=== PATIENT | female | born 1955 | race Caucasian/White ===

== ENCOUNTER 2020-11-16 19:39 | Inpatient (IN) | payer MEDICARE, OTHER ==
[~2020-11-16] VITALS: Ht 162.6 cm; Wt 99.8 kg
[~2020-11-16 19:39] MED LIST: ASPIRIN CHEW81 MG PO; ASPIRIN81 M1 PO; BENTYL20 MG PO; CARAFATE1 GM PO; CHLORDIAZEPOXI1 EACH PO; CYMBALTA60 MG PO; DEXILANT60 MG PO; FENTANYL1 EAC1 PO; FLEXERIL10 MG PO; GABAPENTIN300 MG PO; HEMOCYTE PLUS1 EACH PO; LEVAQUIN500 MG PO; LEXAPRO20 MG PO; LIBRAX CAPSULE1 EACH PO; LISINOPRIL-HCT1 EAC1 PO; LISINOPRIL-HCT1 EAC2 PO; LORAZEPAM0.5 MG PO; LYRICA75 MG PO; METOPROLOL SUC100 MG PO; NIACIN500 M1 PO; NORCO 10-325 T1 EACH; PERCOCET 10-321 EACH PO; REGLAN10 MG PO; SENNA-S TABLET1 EA PO; TRAZODONE HCL50 MG PO; XANAX PO
[2020-11-16] MEDS ORDERED: ONDANSETRON HCL INJ 2MG/ML 2ML 2 MG/ML VIAL IV STA (20:30)
[2020-11-16 20:32] LABS: BASOPHILS % 0.1 % (0.0-1.0); EOSINOPHILS % 0.1 % (0.0-6.0); HEMOGLOBIN 12.5 g/dL (12.0-16.0); LYMPHOCYTES # (AUTO) 1.2 (1.0-3.2); LYMPHOCYTES % 13.5 % (18.0-39.1); MEAN CORPUSCULAR HEMOGLOBIN 25.6 pg (28-32); MEAN CORPUSCULAR HGB CONC 32.9 g/dL (31-35); MEAN CORPUSCULAR VOLUME 77.9 fL (81-99); MONOCYTES # (AUTO) 0.2 (0.2-0.8); MONOCYTES % 2.5 % (4.4-11.3); NEUTROPHILS # (AUTO) 7.4 (2.1-6.9); NEUTROPHILS % 83.5 % (38.7-80.0); PLATELET COUNT 433 x10e3/uL (140-360); RED BLOOD COUNT 4.88 x10e6/uL (3.6-5.1); RED CELL DISTRIBUTION WIDTH 14.8 % (11.7-14.4)
[2020-11-16] MEDS ORDERED: ONDANSETRON HCL INJ 2MG/ML 2ML 2 MG/ML VIAL ONE (20:34)
[2020-11-16 20:48] LABS: ALANINE AMINOTRANSFERASE 8 IU/L (0-55); ALBUMIN 4.4 g/dL (3.5-5.0); ALBUMIN/GLOBULIN RATIO 1.2 (0.8-2.0); ALKALINE PHOSPHATASE 64 IU/L (40-150); BLOOD UREA NITROGEN 7 mg/dL (7-26); BUN/CREATININE RATIO 10 (6-25); CALCIUM 9.9 mg/dL (8.4-10.2); CARBON DIOXIDE 23 mmol/L (22-29); CHLORIDE 98 mmol/L (98-107); CREATINE KINASE 51 IU/L (29-168); CREATININE, SERUM 0.72 mg/dL (0.57-1.11); EST GLOMERULAR FILTRATION RATE > 60 ML/MIN (60-); GLUCOSE 154 mg/dL (74-118); SODIUM 137 mmol/L (136-145)
[2020-11-16 20:52] LABS: CLARITY,URINE SL CLOUDY (CLEAR); COLOR,URINE YELLOW (YELLOW); KETONES,URINE NEGATIVE (NEGATIVE); LEUKOCYTE ESTERASE ,URINE NEGATIVE (NEGATIVE); NITRITE,URINE NEGATIVE (NEGATIVE); PROTEIN,URINE DIPSTICK TRACE (NEGATIVE); URINE UROBILINOGEN 0.2 mg/dL (0.2 - 1)
[2020-11-16 21:04] LABS: BACTERIA,URINE MODERATE /HPF; EPITHELIAL CELLS,URINE FEW /LPF
[2020-11-16] MEDS ORDERED: SODIUM CHLORIDE 0.9% 50ML 50 ML ONE (21:08)
[2020-11-16] MEDS ORDERED: IOPAMIDOL 370 MG/ML 200 ML INFUS..BTL INJ ONE (21:08)
[2020-11-16] MEDS ORDERED: POTASSIUM CHLORIDE 20 MEQ TAB CR PO STA (21:54)
[2020-11-16] MEDS ORDERED: METOCLOPRAMIDE HCL 10 MG/2ML VIAL IV ONE (22:00)
[2020-11-16] MEDS ORDERED: DIPHENHYDRAMINE HCL INJ 50 MG/ML VIAL IV ONE (22:00)
[2020-11-16] MEDS ORDERED: ZOFRAN4 MG SL (22:46)
[2020-11-16] MEDS ORDERED: PANTOPRAZOLE SO40 MG PO (22:46)
[2020-11-16] MEDS ORDERED: PANTOPRAZOLE SOD 40 MG TABEC PO ONE (23:00)
[2020-11-16] MEDS ORDERED: ONDANSETRON HCL INJ 2MG/ML 2ML 2 MG/ML VIAL IV PRN (23:00)
[2020-11-16] MEDS: PANTOPRAZOLE INJ 40 MG in SODIUM CHLORIDE 0.9% 50ML 50 ML IV SCH (23:39)
[2020-11-17] VITALS (8 sets, daily range): BP systolic 157–194; BP diastolic 76–111
[2020-11-17] MEDS ORDERED: ONDANSETRON HCL INJ 2MG/ML 2ML 2 MG/ML VIAL IV STA (00:25)
[2020-11-17] MEDS ORDERED: DONNATAL/LIDOCAINE/MAALOX 30 ML SUSP PO STA (00:31)
[2020-11-17] MEDS ORDERED: LIDOCAINE VISC 2% SOLN 15 ML UDC PO ONE (00:45)
[2020-11-17] MEDS ORDERED: BELLADONNA ALK/PHENOBARBITAL 5 ML UDC PO ONE (00:45)
[2020-11-17] MEDS ORDERED: MAGNESIUM/ALUMINUM/SIMETHICONE 30 ML UDC PO ONE (00:45)
[2020-11-17] MEDS ORDERED: MELATONIN3 M1 PO (01:12)
[2020-11-17] MEDS ORDERED: BENADRYL25 M1 PO (01:12)
[2020-11-17] MEDS ORDERED: PAXIL40 MG PO (01:12)
[2020-11-17] MEDS: METOCLOPRAMIDE HCL 10 MG/2ML VIAL IV SCH ×4 (02:03→16:28)
[2020-11-17] MEDS: TRAMADOL HCL 50 MG TAB PO PRN ×2 (03:39→08:55)
[2020-11-17] MEDS: PANTOPRAZOLE INJ 40 MG in SODIUM CHLORIDE 0.9% 50ML 50 ML IV SCH ×4 (03:43→19:00)
[2020-11-17] MEDS ORDERED: PANTOPRAZOLE 40 MG 10ML VIAL ONE ×2 (03:48→10:35)
[2020-11-17] MEDS ORDERED: SODIUM CHLORIDE 0.9% 50ML 50 ML ONE (03:49)
[2020-11-17] MEDS: HYDROMORPHONE 1MG/1ML INJ IV PRN ×4 (06:17→22:15)
[2020-11-17] MEDS: LABETALOL HCL 5 MG/ML 20ML VIAL IV PRN ×2 (06:17→21:30)
[2020-11-17 06:31] LABS: BASOPHILS % 0.1 % (0.0-1.0); HEMATOCRIT 36.1 % (34.2-44.1); HEMOGLOBIN 11.8 g/dL (12.0-16.0); LYMPHOCYTES # (AUTO) 1.3 (1.0-3.2); LYMPHOCYTES % 14.6 % (18.0-39.1); MEAN CORPUSCULAR HEMOGLOBIN 25.5 pg (28-32); MEAN CORPUSCULAR HGB CONC 32.7 g/dL (31-35); MONOCYTES # (AUTO) 0.3 (0.2-0.8); MONOCYTES % 3.7 % (4.4-11.3); PLATELET COUNT 405 x10e3/uL (140-360); RED BLOOD COUNT 4.63 x10e6/uL (3.6-5.1); RED CELL DISTRIBUTION WIDTH 14.9 % (11.7-14.4)
[2020-11-17 07:11] LABS: ALANINE AMINOTRANSFERASE 7 IU/L (0-55); ALBUMIN 4.2 g/dL (3.5-5.0); ALBUMIN/GLOBULIN RATIO 1.1 (0.8-2.0); ALKALINE PHOSPHATASE 62 IU/L (40-150); BLOOD UREA NITROGEN 6 mg/dL (7-26); BUN/CREATININE RATIO 8 (6-25); CALCIUM 9.4 mg/dL (8.4-10.2); CARBON DIOXIDE 26 mmol/L (22-29); CHLORIDE 96 mmol/L (98-107); CREATININE, SERUM 0.73 mg/dL (0.57-1.11); EST GLOMERULAR FILTRATION RATE > 60 ML/MIN (60-); GLUCOSE 126 mg/dL (74-118); LIPASE 42 U/L (8-78); SODIUM 136 mmol/L (136-145)
[2020-11-17 07:54] LABS: FERRITIN 15.69 ng/mL (4.63-204.00)
[2020-11-17] MEDS ORDERED: HYDROMORPHONE 1MG/1ML INJ IV PRN (08:30)
[2020-11-17] MEDS ORDERED: POTASSIUM CHLORIDE 20MEQ/100ML 100 ML IV ONE ×2 (08:30→11:30)
[2020-11-17] MEDS ORDERED: SODIUM CHLORIDE 0.9% 250ML 250 ML ONE ×2 (08:52→11:31)
[2020-11-17] MEDS ORDERED: SODIUM CHLORIDE 0.9% 100 ML ONE (10:35)
[2020-11-17] MEDS ORDERED: FENTANYL CITRATE/PF 100MCG/2 ML INJ ONE (11:54)
[2020-11-17] MEDS ORDERED: MIDAZOLAM HCL 2 MG/2 ML VIAL ONE (11:54)
[2020-11-17] MEDS ORDERED: LIDOCAINE HCL 2% LOCAL INJ 5 ML SDV VIAL INJ ONE (13:51)
[2020-11-17] MEDS ORDERED: PROPOFOL IV EMULSION 10 MG/ML 20 ML VIAL ONE (13:51)
[2020-11-17] MEDS: ONDANSETRON HCL INJ 2MG/ML 2ML 2 MG/ML VIAL IV PRN (20:49)
[2020-11-18] VITALS (11 sets, daily range): BP systolic 147–196; BP diastolic 86–133
[2020-11-18] MEDS: METOCLOPRAMIDE HCL 10 MG/2ML VIAL IV SCH ×5 (00:19→23:58)
[2020-11-18] MEDS: PANTOPRAZOLE INJ 40 MG in SODIUM CHLORIDE 0.9% 50ML 50 ML IV SCH ×5 (00:19→21:03)
[2020-11-18] MEDS ORDERED: PANTOPRAZOLE 40 MG 10ML VIAL ONE ×4 (00:21→21:08)
[2020-11-18] MEDS ORDERED: SODIUM CHLORIDE 0.9% 50ML 50 ML ONE ×3 (00:22→08:10)
[2020-11-18] MEDS: HYDROMORPHONE 1MG/1ML INJ IV PRN ×6 (02:21→23:42)
[2020-11-18] MEDS: ONDANSETRON HCL INJ 2MG/ML 2ML 2 MG/ML VIAL IV PRN ×4 (02:21→23:42)
[2020-11-18] MEDS: LABETALOL HCL 5 MG/ML 20ML VIAL IV PRN ×4 (06:22→23:42)
[2020-11-18 08:59] LABS: BASOPHILS % 0.1 % (0.0-1.0); EOSINOPHILS % 0.1 % (0.0-6.0); HEMATOCRIT 33.2 % (34.2-44.1); HEMOGLOBIN 10.9 g/dL (12.0-16.0); LYMPHOCYTES # (AUTO) 1.6 (1.0-3.2); LYMPHOCYTES % 20.6 % (18.0-39.1); MEAN CORPUSCULAR HEMOGLOBIN 26.3 pg (28-32); MEAN CORPUSCULAR HGB CONC 32.8 g/dL (31-35); MEAN CORPUSCULAR VOLUME 80.2 fL (81-99); MONOCYTES # (AUTO) 0.5 (0.2-0.8); NEUTROPHILS # (AUTO) 5.6 (2.1-6.9); NEUTROPHILS % 72.7 % (38.7-80.0); PLATELET COUNT 348 x10e3/uL (140-360); RED BLOOD COUNT 4.14 x10e6/uL (3.6-5.1); RED CELL DISTRIBUTION WIDTH 14.8 % (11.7-14.4)
[2020-11-18 09:19] LABS: ALANINE AMINOTRANSFERASE 7 IU/L (0-55); ALBUMIN 3.7 g/dL (3.5-5.0); ALBUMIN/GLOBULIN RATIO 1.2 (0.8-2.0); ALKALINE PHOSPHATASE 52 IU/L (40-150); ANION GAP 15.3 mmol/L (8-16); BLOOD UREA NITROGEN 6 mg/dL (7-26); BUN/CREATININE RATIO 9 (6-25); CALCIUM 8.7 mg/dL (8.4-10.2); CARBON DIOXIDE 26 mmol/L (22-29); CHLORIDE 99 mmol/L (98-107); CREATININE, SERUM 0.64 mg/dL (0.57-1.11); EST GLOMERULAR FILTRATION RATE > 60 ML/MIN (60-); GLUCOSE 121 mg/dL (74-118); POTASSIUM 3.3 mmol/L (3.5-5.1); SODIUM 137 mmol/L (136-145)
[2020-11-18] MEDS ORDERED: POTASSIUM CHLORIDE 20MEQ/100ML 200 ML IV ONE (12:00)
[2020-11-18] MEDS ORDERED: SODIUM CHLORIDE 0.9% 500ML 500 ML ONE (12:32)
[2020-11-19] VITALS (10 sets, daily range): BP systolic 158–192; BP diastolic 92–114
[2020-11-19] MEDS: PANTOPRAZOLE INJ 40 MG in SODIUM CHLORIDE 0.9% 50ML 50 ML IV SCH ×5 (01:15→21:23)
[2020-11-19] MEDS ORDERED: PANTOPRAZOLE 40 MG 10ML VIAL ONE ×5 (01:19→21:27)
[2020-11-19] MEDS ORDERED: CYANOCOBALAMIN INJ 1,000 MCG/ML VIAL IM ONE (02:15)
[2020-11-19] MEDS ORDERED: ONDANSETRON HCL INJ 2MG/ML 2ML 2 MG/ML VIAL IV SCH (02:30)
[2020-11-19] MEDS: HYDROMORPHONE 1MG/1ML INJ IV PRN ×5 (03:42→20:23)
[2020-11-19] MEDS: METOCLOPRAMIDE HCL 10 MG/2ML VIAL IV SCH ×3 (06:08→17:02)
[2020-11-19] MEDS: ONDANSETRON HCL INJ 2MG/ML 2ML 2 MG/ML VIAL IV SCH ×3 (07:55→20:00)
[2020-11-19] MEDS: CYANOCOBALAMIN INJ 1,000 MCG/ML VIAL IM SCH (07:57)
[2020-11-19] MEDS: METOPROLOL SUCCINATE 50 MG TAB XL PO SCH ×2 (07:59→16:18)
[2020-11-19] MEDS: LISINOPRIL 20 MG TAB PO SCH (07:59)
[2020-11-19] MEDS: HYDROCHLOROTHIAZIDE 25 MG TAB PO SCH (07:59)
[2020-11-19] MEDS: PAROXETINE HCL 20 MG TAB PO SCH (07:59)
[2020-11-19] MEDS: IRON SUCROSE 100 MG in SODIUM CHLORIDE 0.9% 100 ML 100 ML IV SCH (10:27)
[2020-11-19] MEDS: LABETALOL HCL 5 MG/ML 20ML VIAL IV PRN ×2 (11:46→18:13)
[2020-11-19] MEDS: ONDANSETRON HCL INJ 2MG/ML 2ML 2 MG/ML VIAL IV PRN ×2 (12:10→16:17)
[2020-11-19] MEDS ORDERED: SODIUM CHLORIDE 0.9% 50ML 50 ML ONE ×2 (12:16→18:15)
[2020-11-19] MEDS ORDERED: SODIUM CHLORIDE 0.9% 100 ML ONE (12:31)
[2020-11-20] VITALS: BP 199/106
[2020-11-20] MEDS: METOCLOPRAMIDE HCL 10 MG/2ML VIAL IV SCH ×3 (00:30→13:02)
[2020-11-20] MEDS: HYDROMORPHONE 1MG/1ML INJ IV PRN ×3 (00:32→08:21)
[2020-11-20] MEDS: LABETALOL HCL 5 MG/ML 20ML VIAL IV PRN (01:50)
[2020-11-20] MEDS: PANTOPRAZOLE INJ 40 MG in SODIUM CHLORIDE 0.9% 50ML 50 ML IV SCH (02:09)
[2020-11-20] MEDS: ONDANSETRON HCL INJ 2MG/ML 2ML 2 MG/ML VIAL IV SCH ×2 (02:09→08:00)
[2020-11-20] MEDS ORDERED: PANTOPRAZOLE 40 MG 10ML VIAL ONE ×2 (02:10→07:03)
[2020-11-20 04:00] VITALS: BP 178/104
[2020-11-20 04:45] VITALS: BP 165/90
[2020-11-20] MEDS ORDERED: SODIUM CHLORIDE 0.9% 100 ML ONE (07:41)
[2020-11-20] MEDS ORDERED: PANTOPRAZOL 40MG/SOD CHL 0.9% 50 ML IV SCH (07:45)
[2020-11-20 07:49] VITALS: BP 181/98
[2020-11-20 08:00] VITALS: BP 181/98
[2020-11-20] MEDS: CYANOCOBALAMIN INJ 1,000 MCG/ML VIAL IM SCH (08:24)
[2020-11-20] MEDS: HYDROCHLOROTHIAZIDE 25 MG TAB PO SCH (08:24)
[2020-11-20] MEDS: PAROXETINE HCL 20 MG TAB PO SCH (08:29)
[2020-11-20] MEDS: LISINOPRIL 20 MG TAB PO SCH ×2 (08:32→12:37)
[2020-11-20] MEDS: METOPROLOL SUCCINATE 50 MG TAB XL PO SCH (08:36)
[2020-11-20 11:52] VITALS: BP 212/111
[2020-11-20] MEDS: IRON SUCROSE 100 MG in SODIUM CHLORIDE 0.9% 100 ML 100 ML IV SCH (12:24)
[2020-11-20] MEDS ORDERED: MELATONIN 3 MG TAB PO PRN (13:15)
[2020-11-20] MEDS ORDERED: NON-FORMULARY MEDICATION (Ondansetron Hcl* (Zofran*) 4 MG) SL PRN (13:15)
[2020-11-20] MEDS ORDERED: DIPHENHYDRAMINE HCL 25 MG CAP PO PRN (13:15)
[2020-11-20] MEDS ORDERED: ONDANSETRON HCL 4 MG ORAL DISINTEGRATING TAB PO PRN ×2 (13:30)
[2020-11-20] MEDS ORDERED: POTASSIUM CHLORIDE 20 MEQ TAB CR PO STA (13:32)
[2020-11-20] MEDS ORDERED: DICYCLOMINE HCL 20 MG TAB PO SCH (15:00)
[2020-11-20] MEDS ORDERED: MELATONIN 5 MG TABLET PO PRN (21:00)
[2020-11-20] MEDS ORDERED: SENNA-S TABLET PO SCH (21:00)
[2020-11-21] MEDS ORDERED: PANTOPRAZOLE SOD 40 MG TABEC PO SCH (09:00)
== END 2020-11-20 13:50 | disposition home or self-care (01) | DRG 392 ==
LOC: ER 21:01 → ERHOLD 22:56 → MED/SURG3 11-17 00:16 → OBSVTOIN 11-18 12:29
PROC: 0DB78ZX Excision of Stomach, Pylorus, Via Natural or Artificial Opening Endoscopic, Diagnostic (ICD-10-PCS; 2020-11-17)
PROC: 0DB68ZX Excision of Stomach, Via Natural or Artificial Opening Endoscopic, Diagnostic (ICD-10-PCS; principal; 2020-11-17 19:41)
DX: K21.00 Gastro-esophageal reflux disease with esophagitis, without bleeding (principal); K44.9 Diaphragmatic hernia without obstruction or gangrene; K31.84 Gastroparesis; K31.7 Polyp of stomach and duodenum; D50.9 Iron deficiency anemia, unspecified; K22.2 Esophageal obstruction; E86.0 Dehydration; E66.9 Obesity, unspecified; Z96.651 Presence of right artificial knee joint; Z91.040 Latex allergy status; Z90.49 Acquired absence of other specified parts of digestive tract; Z68.37 Body mass index [BMI] 37.0-37.9, adult; Z20.822 Contact with and (suspected) exposure to COVID-19
CPT/HCPCS: 36415; 43239; 71045; 74176; 80053; 81001; 82550; 82553; 82607; 82728; 82746; 83540; 83690; 84466; 84484; 85025; 85045; 88305; 88312; 93005; 99284; G0378; J1170; J1200; J1756; J2001; J2250; J2405; J2765; J3010; J3420; J3480; J7040; J7050; Q9967; U0002

== ENCOUNTER → 2021-02-26 | Day surgery (SDC) | payer MEDICARE ==
[2021-02-23 14:55] LABS: BASOPHILS % 0.4 % (0.0-1.0); EOSINOPHILS % 0.1 % (0.0-6.0); HEMATOCRIT 35.3 % (34.2-44.1); HEMOGLOBIN 11.8 g/dL (12.0-16.0); LYMPHOCYTES # (AUTO) 2.9 (1.0-3.2); LYMPHOCYTES % 37.2 % (18.0-39.1); MEAN CORPUSCULAR HEMOGLOBIN 28.2 pg (28-32); MEAN CORPUSCULAR HGB CONC 33.4 g/dL (31-35); MEAN CORPUSCULAR VOLUME 84.4 fL (81-99); MONOCYTES # (AUTO) 0.4 (0.2-0.8); MONOCYTES % 4.9 % (4.4-11.3); NEUTROPHILS # (AUTO) 4.4 (2.1-6.9); NEUTROPHILS % 56.8 % (38.7-80.0); PLATELET COUNT 344 x10e3/uL (140-360); RED BLOOD COUNT 4.18 x10e6/uL (3.6-5.1); RED CELL DISTRIBUTION WIDTH 14.2 % (11.7-14.4)
[~2021-02-26] MED LIST changes: +BENADRYL25 M1 PO; +HYDROCHLOROTHIA25 MG PO; +HYOSCYAMINE SULFATE 0.5 MG/ML INJ ONE; +LIDOCAINE HCL 2% LOCAL INJ 5 ML SDV VIAL INJ ONE; +LISINOPRIL10 MG PO; +MELATONIN3 M1 PO; +METOCLOPRAMIDE HCL 10 MG/2ML VIAL ONE; +OMEPRAZOLE40 MG PO; +ONDANSETRON HCL INJ 2MG/ML 2ML 2 MG/ML VIAL ONE; +PANTOPRAZOLE SO40 MG PO; +PAXIL40 MG PO; +POVIDONE IODINE 0.05% 0.05 % ML PO ONE; +PROPOFOL IV EMULSION 10 MG/ML 20 ML VIAL ONE; +ZOFRAN4 MG SL
[2021-02-26 15:27] VITALS: BP 146/90
== END | disposition home or self-care (01) ==
LOC: OR 11:27
PROVIDERS: ATTEND Internal Medicine Gastroenterology
DX: Z09 Encounter for follow-up examination after completed treatment for conditions other than malignant neoplasm (principal); D12.4 Benign neoplasm of descending colon; K63.89 Other specified diseases of intestine; K64.8 Other hemorrhoids; K29.70 Gastritis, unspecified, without bleeding; K21.9 Gastro-esophageal reflux disease without esophagitis; I10 Essential (primary) hypertension; M54.9 Dorsalgia, unspecified; F17.200 Nicotine dependence, unspecified, uncomplicated; Z01.810 Encounter for preprocedural cardiovascular examination; Z01.812 Encounter for preprocedural laboratory examination
CPT/HCPCS: 36415; 45380; 45385; 85025; 93005; J1980; J2001; J2405; J2704; J2765; 45378; 45384

== ENCOUNTER 2025-06-27 19:08 | Emergency (ER) | payer MEDICARE ==
[~2025-06-27] VITALS: Ht 162.6 cm; Wt 108.9 kg
[~2025-06-27 19:08] MED LIST changes: +CIPRO250 MG PO; -HYOSCYAMINE SULFATE 0.5 MG/ML INJ ONE; -LIDOCAINE HCL 2% LOCAL INJ 5 ML SDV VIAL INJ ONE; -METOCLOPRAMIDE HCL 10 MG/2ML VIAL ONE; -ONDANSETRON HCL INJ 2MG/ML 2ML 2 MG/ML VIAL ONE; -POVIDONE IODINE 0.05% 0.05 % ML PO ONE; -PROPOFOL IV EMULSION 10 MG/ML 20 ML VIAL ONE
[2025-06-27 20:40] VITALS: RESP 17; TEMP 98.2
[2025-06-27 21:51] LABS: BASOPHILS % 0.2 % (0.0-1.0); EOSINOPHILS % 0.0 % (0.0-6.0); LYMPHOCYTES % 34.1 % (18.0-39.1); MONOCYTES % 9.5 % (4.4-11.3); NEUTROPHILS % 55.9 % (38.7-80.0); RED CELL DISTRIBUTION WIDTH 13.0 % (11.7-14.4)
[2025-06-27 22:15] LABS: EST GLOMERULAR FILTRATION RATE 81.0 ML/MIN (>=60)
[2025-06-27] MEDS: ONDANSETRON HCL INJ 2MG/ML 2ML 2 MG/ML VIAL IV STA (23:21)
[2025-06-28] MEDS ORDERED: IOPAMIDOL 370 MG/ML 100 ML INFUS..BTL INJ ONE (00:18)
[2025-06-28] MEDS ORDERED: ONDANSETRON ODT4 MG SL (01:52)
[2025-06-28] MEDS: ONDANSETRON HCL INJ 2MG/ML 2ML 2 MG/ML VIAL IV STA (02:05)
[2025-06-28 02:10] VITALS: PULSE 66
[2025-06-28 03:15] VITALS: BP 177/94; O2SAT 100
== END 2025-06-28 02:37 | disposition home or self-care (01) ==
LOC: ER 21:15
DX: R10.10 Upper abdominal pain, unspecified (principal); R11.2 Nausea with vomiting, unspecified; I10 Essential (primary) hypertension; K21.9 Gastro-esophageal reflux disease without esophagitis; M54.9 Dorsalgia, unspecified; G89.29 Other chronic pain; R94.31 Abnormal electrocardiogram [ECG] [EKG]; Z96.652 Presence of left artificial knee joint; Z87.19 Personal history of other diseases of the digestive system
CPT/HCPCS: 36415; 74022; 74177; 80053; 83690; 84484; 85025; 93005; 99284; J2405 ×2; J2470; Q9967